=== PATIENT | male | born 1955 | race Two or more races ===

== ENCOUNTER 2020-04-20 14:54 | Emergency (ER) | payer OTHER ==
[~2020-04-20] VITALS: Ht 162.6 cm; Wt 78.9 kg
[~2020-04-20 14:54] MED LIST: PREDNISONE10 MG ORAL; VALACYCLOVIR1000 MG ORAL
--- NOTE | 2020-04-20 15:19 | NUR ---
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 pt unable to move left arm without increased pain. good cms distally.
--- NOTE | 2020-04-20 15:23 | Emergency Room Report ---
History of Present Illness General Chief Complaint: Upper Extremity Injury Source: Patient Present Illness HPI Disclaimer: Please note that this report is being documented using [employer] technology. This can lead to erroneous entry secondary to incorrect interpretation by the dictating instrument. HPI: 64-year-old male presents for left shoulder pain. 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 Noted immediate pain. Unable to move the left side. No prior history of injury or dislocation. He is left- handed. No other injury reported. Denies numbness or tingling. PMH: Reviewed PSH: Reviewed Allergies: Reviewed Social Hx: Reviewed Allergies: Coded Allergies: No Known Allergies (Unverified , 08/28/18) COVID-19 Screening Contact w/high risk pt: No Experienced COVID-19 symptoms?: No COVID-19 Testing Source: work place Nursing Documentation-PMH Past Medical History: No Stated History Review of Systems All Other Systems: negative except mentioned in HPI Physical Exam Vital Signs Date Time Temp Pulse Resp B/P (MAP) Pulse Ox O2 Delivery O2 Flow Rate FiO2 04/20/20 15:09 98.4 85 19 145/86 (105) 99 Room Air General: Awake and alert, no acute distress HEENT: NC/AT. EOMI. Resp: Normal work of breathing Skin: Intact. No abrasions, laceration or rash over the exposed skin MSK: Normal tone and bulk. Palpable deformity and step-off at the left proximal humerus. Sensation of the deltoid intact. No tenderness or deformity in the elbow, forearm, wrist or fingers of the left upper extremity. Unable to actively move the left upper extremity at the shoulder. Neuro: Awake and alert. Mentating appropriately Medical Decision Making Diagnostic Impression: Primary Impression: Dislocation of shoulder, left, closed ER Course 64-year-old [id number] male presents for evaluation of left shoulder injury. Concern for fracture dislocation x-ray was obtained. X-ray concerning for anterior shoulder dislocation without obvious fracture. The patient was given 4 mg intramuscular morphine for pain and scapular massage technique used with successful reduction of the left shoulder. Placed in immobilizer and postreduction x-ray show appropriate alignment again without fracture. Will be discharged with the immobilizer. Instructed not to use the left upper extremity until cleared to return to these activities by PMD or orthopedic surgeon. Instructed to return with new or worsening symptoms. Other X-Ray Diagnostic Results Other X-Ray Diagnostic Results #1: X-Ray ordered: Left shoulder # of Views/Limited Vs Complete: 3 View Indication: Pain EP Interpretation: Yes Interpretation: other - Anterior shoulder dislocation, no fracture Impression: Other - Anterior shoulder dislocation Electronically Signed by: Electronically signed by Dr. Adarsh Rodriguez Other X-Ray Diagnostic Results #2: X-Ray ordered: Left shoulder post reduction # of Views/Limited Vs Complete: 3 View Indication: Other - Post reduction Interpretation: no dislocation, no fractures Impression: Other - Successful reduction left shoulder Electronically Signed by: Electronically signed by Dr. Adarsh Rodriguez Last Vital Signs Date Time Temp Pulse Resp B/P (MAP) Pulse Ox O2 Delivery O2 Flow Rate FiO2 04/20/20 15:09 98.4 85 19 145/86 (105) 99 Room Air Disposition: HOME, SELF-CARE Condition: Improved Scripts Ibuprofen* (MOTRIN*) 600 Mg Tablet 600 MG ORAL Q6H PRN for For Pain, #30 TAB 0 Refills Prov: Adarsh Rodriguez MD 04/20/20 Adarsh Rodriguez MD Apr 20, 2020 15:23
[2020-04-20 15:30] VITALS: BP 145/86
[2020-04-20] MEDS ORDERED: Morphine Sulfate 2mg/ml Inj(IV/IM USE ONLY) IVP ONE (15:30)
--- NOTE | 2020-04-20 16:06 | NUR ---
ED Nurse Note: md attempting to reduce left should witrh counter traction and massage. pt tolerating well.
[2020-04-20] MEDS ORDERED: IBUPROFEN600 M1 ORAL (16:13)
--- NOTE | 2020-04-20 16:14 | NUR ---
ED Nurse Note: pt with successful shoulder reduction. shoulder immobilizer applied to left shoulder. pt tolerates well. good cms distally remains after.
--- NOTE | 2020-04-20 16:23 | NUR ---
ED Nurse Note: post reduction xray done.
[2020-04-20 17:15] VITALS: BP 125/78
--- NOTE | 2020-04-20 17:15 | NUR ---
ED Nurse Note: Pt cleared by health care Provider for discharge. DC instructions/prescription was given and explained to pt and verbalized understanding of teachings. All medical devices such as ID band removed. Pt is AAO x4, ambulatory and left with all personal belongings. pt with shoulder immobilizer in place. pt states understanding of f/u plan.
--- NOTE | 2020-04-21 06:20 | Diagnostic Imaging Report ---
EXAM: XR Left Shoulder Complete, 2 or More Views CLINICAL HISTORY: INJ TECHNIQUE: Two or more views of the left shoulder. COMPARISON: No relevant prior studies available. FINDINGS: Bones/joints: Anterior dislocation of the left glenohumeral joint. No clear fracture. Normal alignment of the left acromioclavicular joint.. Soft tissues: Unremarkable. IMPRESSION: Anterior dislocation of the left glenohumeral joint.
--- NOTE | 2020-04-21 06:20 | Diagnostic Imaging Report ---
EXAM: XR Left Shoulder Complete, 2 or More Views CLINICAL HISTORY: Injury TECHNIQUE: Two or more views of the left shoulder. COMPARISON: 04/20/20 at 1528 hrs. FINDINGS/IMPRESSION: Successful interval reduction of left glenohumeral dislocation.
== END 2020-04-20 17:15 | disposition home or self-care (01) ==
LOC: EMR 15:15
DX: S43.005A Unspecified dislocation of left shoulder joint, initial encounter (principal); X50.0XXA Overexertion from strenuous movement or load, initial encounter; Y92.9 Unspecified place or not applicable; Y99.0 Civilian activity done for income or pay
CPT/HCPCS: 23650; 73030; 96374; J2270; Z7502; 99283

== ENCOUNTER 2020-05-12 10:14 | Emergency (ER) | payer OTHER ==
[~2020-05-12] VITALS: Ht 160 cm; Wt 72.6 kg
[~2020-05-12 10:14] MED LIST changes: +IBUPROFEN600 M1 ORAL
[2020-05-12 10:20] VITALS: BP 149/74
--- NOTE | 2020-05-12 10:20 | NUR ---
ED Nurse Note: Pt walked in from home c/o possible stroke symtoms. Pt has right sided facial droop with headache that started yesterday around 0700. Pt had a stroke 3 months ago. Respirations even and labored on room air. Vitals stable as documented. A+Ox4, speaking in complete sentences, with clear speech. Arm strength equal and strong on both sides.
[2020-05-12 10:37] LABS: BASOPHILS % (AUTO) 1.8 % (0.0-2.0); EOSINOPHILS % (AUTO) 2.2 % (0.0-3.0); HEMATOCRIT 49.2 % (42.0-52.0); HEMOGLOBIN 16.3 G/DL (14.2-18.0); LYMPHOCYTES % (AUTO) 31.5 % (20.0-45.0); MEAN CORPUSCULAR VOLUME 87 FL (80-99); MONOCYTES % (AUTO) 7.4 % (1.0-10.0); NEUTROPHILS % (AUTO) 57.2 % (45.0-75.0); PLATELET COUNT 369 K/UL (150-450); RED BLOOD COUNT 5.68 M/UL (4.70-6.10); RED CELL DISTRIBUTION WIDTH 12.7 % (11.6-14.8); WHITE BLOOD COUNT 7.4 K/UL (4.8-10.8)
[2020-05-12 10:48] LABS: ANION GAP 10 mmol/L (5-15); BLOOD UREA NITROGEN 10 mg/dL (7-18); CALCIUM 8.6 MG/DL (8.5-10.1); CARBON DIOXIDE 26 MMOL/L (21-32); CHLORIDE 105 MMOL/L (98-107); CREATININE 0.8 MG/DL (0.55-1.30); SODIUM 141 MMOL/L (136-145)
[2020-05-12 10:53] LABS: ALANINE AMINOTRANSFERASE 51 U/L (12-78); ALKALINE PHOSPHATASE 84 U/L (46-116); ASPARTATE AMINO TRANSFERASE 24 U/L (15-37); BILIRUBIN,TOTAL 0.4 MG/DL (0.2-1.0)
--- NOTE | 2020-05-12 10:55 | NUR ---
ED Nurse Note: pt in radiology
--- NOTE | 2020-05-12 11:44 | Diagnostic Imaging Report ---
Indications: Right-sided facial droop and headache started yesterday Technique: Spiral acquisitions obtained through the brain. Angled axial and coronal 5 x 5 mm slices were reconstructed. Total dose length product 1125 mGycm. CTDI vol(s) 53 mGy. Dose reduction achieved using automated exposure control Comparison: None. Findings: No acute intracranial hemorrhage or edema, mass effect, nor midline shift. Normal kyle-white differentiation. Normal size ventricles and extra axial CSF spaces.. Visualized orbits and sinuses are unremarkable. The mastoids are clear. The calvarium is intact Impression: Negative The CT scanner at [facility] is accredited by the [employer] and the scans are performed using protocols designed to limit radiation exposure to as low as reasonably achievable to attain images of sufficient resolution adequate for diagnostic evaluation.
[2020-05-12] MEDS ORDERED: PREDNISONE10 MG ORAL (11:59)
[2020-05-12] MEDS ORDERED: VALACYCLOVIR1000 MG ORAL (11:59)
[2020-05-12 12:15] VITALS: BP 138/72
--- NOTE | 2020-05-12 12:15 | NUR ---
ER DISCHARGE NOTE: Patient is cleared to be discharged per ERMD, pt is aox4, on room air, with stable vital signs. pt was given dc and prescription instructions, pt was able to verbalize understanding, pt id band and iv site removed without complications. pt is able to ambulate with steady gait. pt took all belongings.
--- NOTE | 2020-05-12 15:16 | Emergency Room Report ---
History of Present Illness General Chief Complaint: Stroke Symptoms Source: Patient Present Illness HPI Disclaimer: Please note that this report is being documented using [employer] technology. This can lead to erroneous entry secondary to incorrect interpretation by the dictating instrument. HPI: 64-year-old male presents with right facial weakness patient states symptoms started approximately 24 hours ago. He has had this once in the past about 3 months ago. He denies any pain or shortness of breath nausea and vomiting. He states he has a history of diabetes but is not on medication at this time. Arrived ambulatory. 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 Patient History Reviewed Nursing Documentation: PMH: Agreed; PSxH: Agreed Nursing Documentation-PMH Past Medical History: No History, Except For Hx Hypertension: Yes Hx Diabetes: Yes Review of Systems All Other Systems: negative except mentioned in HPI Physical Exam Vital Signs Date Time Temp Pulse Resp B/P (MAP) Pulse Ox O2 Delivery O2 Flow Rate FiO2 05/12/20 10:18 98.8 72 16 167/87 (113) 97 Room Air Sp02 EP Interpretation: reviewed, normal General Appearance: well appearing, no apparent distress Head: normocephalic, atraumatic Eyes: bilateral eye PERRL, bilateral eye EOMI ENT: hearing grossly normal, moist mucus membranes Neck: full range of motion, supple Respiratory: lungs clear, normal breath sounds, no rhonchi, no respiratory distress, no retraction, no wheezing Cardiovascular #1: normal peripheral pulses, regular rate, rhythm, no murmur Gastrointestinal: non tender, soft, non-distended, no guarding Neurologic: alert, oriented x3, cerebellar normal, speech normal, normal gait, no focal defects, other - Right facial droop noted with difficulty closing right eyelid in addition to loss of wrinkling of right forehead Skin: normal color, warm/dry Medical Decision Making Diagnostic Impression: Primary Impression: Mccann's palsy ER Course MDM: Differential includes but not limited to Mccann's palsy, did consider stroke and intracranial hemorrhage as well Clinical course-patient had obvious right-sided facial droop with involvement of the forehead. 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 I did do a CT scan of the brain which showed no acute process. Laboratory studies showed no significant abnormalities. At this time I do suspect a right-sided Mccann's palsy. Patient was discharged with prednisone in addition to antivirals. Will follow-up with PMD. I did recommend taping the eye lid closed at night to prevent eye dryness. Stable for discharge with return precautions. CT/MRI/US Diagnostic Results CT/MRI/US Diagnostic Results : Imaging Test Ordered: CT brain Impression No acute process Last Vital Signs Date Time Temp Pulse Resp B/P (MAP) Pulse Ox O2 Delivery O2 Flow Rate FiO2 05/12/20 10:20 98.4 79 18 149/74 98 Room Air Disposition: HOME, SELF-CARE Condition: Stable Scripts Valacyclovir Hcl (VALACYCLOVIR) 1,000 Mg Tablet 1000 MG ORAL TID, #21 TAB Prov: Tian Campbell M.D. 05/12/20 Prednisone* (PREDNISONE*) 10 Mg Tablet 10 MG ORAL DAILY, #21 TAB 0 Refills 4 po QD X 2, 3 po QD X 2, 2 po QD X 2, 1 po QD X 4 Prov: Tian Campbell M.D. 05/12/20 Patient Instructions: Mccann Palsy Additional Instructions: Patient is instructed to follow-up with her primary care doctor, primary care clinic or [facility] in 1 to 2 days. Patient instructed to return for any worsening symptoms or concerns. Tian Campbell M.D. May 12, 2020 15:16
--- NOTE | 2020-05-14 04:10 | Cardiology Report ---
APPROVED REPORT EKG Measurement Heart [id number] <Conclusion> Normal sinus rhythm Normal ECG
== END 2020-05-12 12:15 | disposition home or self-care (01) ==
LOC: EMR 10:33
DX: G51.0 Bell's palsy (principal); E11.9 Type 2 diabetes mellitus without complications; I10 Essential (primary) hypertension; R51.9 Headache, unspecified
CPT/HCPCS: 36415; 70450; 80053; 84484; 85025; 85610; 85730; 93005; Z7502; 99284

== ENCOUNTER 2020-06-30 13:36 | Inpatient (IN) | payer OTHER ==
[~2020-06-30] VITALS: Ht 172.7 cm; Wt 63.5 kg
[2020-06-30 14:05] VITALS: BP 118/87
[2020-06-30 14:40] LABS: BASOPHILS % (AUTO) 1.6 % (0.0-2.0); EOSINOPHILS % (AUTO) 5.8 % (0.0-3.0); HEMATOCRIT 47.1 % (42.0-52.0); HEMOGLOBIN 15.7 G/DL (14.2-18.0); LYMPHOCYTES % (AUTO) 22.3 % (20.0-45.0); MEAN CORPUSCULAR VOLUME 85 FL (80-99); MONOCYTES % (AUTO) 4.7 % (1.0-10.0); NEUTROPHILS % (AUTO) 65.5 % (45.0-75.0); PLATELET COUNT 421 K/UL (150-450); RED BLOOD COUNT 5.56 M/UL (4.70-6.10); RED CELL DISTRIBUTION WIDTH 13.8 % (11.6-14.8); WHITE BLOOD COUNT 9.3 K/UL (4.8-10.8)
--- NOTE | 2020-06-30 14:52 | Emergency Room Report ---
History of Present Illness General Chief Complaint: Dyspnea/Respdistress Source: Patient Present Illness HPI 64-year-old male presents to ED for evaluation. States he has had a cough and felt short of breath for the last 5 days. O2 sat low in triage. Cough is productive with yellowish phlegm. Denies fevers or chills. Denies chest pain. States he feels short of breath when walking. Unknown Covid contacts. No other aggravating relieving factors. Denies any other associated symptoms Allergies: Coded Allergies: No Known Allergies (Unverified , 08/28/18) COVID-19 Screening Contact w/high risk pt: No Experienced COVID-19 symptoms?: No COVID-19 Testing performed INSTRUCTOR TECHNICAL TRAINING: No COVID-19 Screening: Negative COVID-19 Patient History Past Medical History: DM, HTN Past Surgical History: none Pertinent Family History: none Social History: Denies: smoking, alcohol use, drug use Immunizations: UTD Reviewed Nursing Documentation: PMH: Agreed; PSxH: Agreed Nursing Documentation-PMH Past Medical History: No History, Except For Hx Hypertension: Yes Hx Diabetes: Yes Review of Systems All Other Systems: negative except mentioned in HPI Physical Exam Vital Signs Date Time Temp Pulse Resp B/P (MAP) Pulse Ox O2 Delivery O2 Flow Rate FiO2 06/30/20 13:46 98.2 95 16 118/87 (97) 88 Room Air Sp02 EP Interpretation: reviewed, normal General Appearance: alert, GCS 15, non-toxic, mild distress Head: normocephalic, atraumatic Eyes: bilateral eye normal inspection, bilateral eye PERRL ENT: hearing grossly normal, normal pharynx, no angioedema, normal voice Neck: full range of motion, supple/symm/no masses Respiratory: chest non-tender, lungs clear, normal breath sounds, speaking full sentences Cardiovascular #1: regular rate, rhythm, no edema Cardiovascular #2: 2+ carotid (R), 2+ carotid (L), 2+ radial (R), 2+ radial (L), 2+ dorsalis pedis (R), 2+ dorsalis pedis (L) Gastrointestinal: normal bowel sounds, non tender, soft, non-distended, no guarding, no rebound Rectal: deferred Genitourinary: normal inspection, no CVA tenderness Musculoskeletal: back normal, normal range of motion, gait/station normal, non- tender Neurologic: alert, motor strength/tone normal, oriented x3, sensory intact, responsive, speech normal Psychiatric: judgement/insight normal, memory normal, mood/affect normal, no suicidal/homicidal ideation Reflexes: 3+ bicep (R), 3+ bicep (L), 3+ tricep (R), 3+ tricep (L), 3+ knee (R), 3+ knee (L) Lymphatic: no adenopathy Medical Decision Making Diagnostic Impression: Primary Impression: Dyspnea Qualified Codes: R06.00 - Dyspnea, unspecified Additional Impression: Pneumonia due to COVID-19 virus ER Course Hospital Course 64-year-old male presents with shortness of breath, hypoxic in triage Differential diagnoses include: Pneumonia, CHF exacerbation, pneumothorax, fluid overload Clinical course Patient placed on stretcher. In isolation. I wore full PPE. On cafeteria monitor with hypoxia on room air. After initial history and physical, I ordered labs, IV fluids, EKG, chest x-ray, blood cultures, UA. Patient placed on nasal cannula with O2 saturation improving Labs -leukocytosis noted, hemoglobin/hematocrit stable, electrolytes okay, lactate okay troponins negative EKG - NSR no acute ischemic changes interpreted by me CXR - bilateral patchy opacities rapid covid + inflammatory markers elevated, D-dimer elevated. Given antibiotics. Given dexamethasone. Given Lovenox. O2 sats improved on nasal cannula Case discussed with Dr. Laird and he agreed to the patient to his service for further care and support I feel this is a highly complex case requiring extensive working including EKG/Rhythm strip, Xray/CT/US, Blood/urine lab work, repeat exams while in ED, a nd administration of strong opiates/narcotics for pain control, admission to hospital or close patient follow up. Diagnosis - dyspnea, pneumonia due to COVID Patient admitted to floor in serious condition Laboratory Tests Test 06/30/20 14:25 White Blood Count 9.3 K/UL (4.8-10.8) Red Blood Count 5.56 M/UL (4.70-6.10) Hemoglobin 15.7 G/DL (14.2-18.0) Hematocrit 47.1 % (42.0-52.0) Mean Corpuscular Volume 85 FL (80-99) Mean Corpuscular Hemoglobin 28.3 PG (27.0-31.0) Mean Corpuscular Hemoglobin Concent 33.4 G/DL (32.0-36.0) Red Cell Distribution Width 13.8 % (11.6-14.8) Platelet Count 421 K/UL (150-450) Mean Platelet Volume 6.6 FL (6.5-10.1) Neutrophils (%) (Auto) 65.5 % (45.0-75.0) Lymphocytes (%) (Auto) 22.3 % (20.0-45.0) Monocytes (%) (Auto) 4.7 % (1.0-10.0) Eosinophils (%) (Auto) 5.8 % (0.0-3.0) H Basophils (%) (Auto) 1.6 % (0.0-2.0) Prothrombin Time 11.7 SEC (9.30-11.50) H Prothromb Time International Ratio 1.1 (0.9-1.1) Activated Partial Thromboplast Time 26 SEC (23-33) D-Dimer 5.30 mg/L FEU (0.00-0.49) H Sodium Level 140 MMOL/L (136-145) Potassium Level 3.9 MMOL/L (3.5-5.1) Chloride Level 104 MMOL/L (98-107) Carbon Dioxide Level 28 MMOL/L (21-32) Anion Gap 8 mmol/L (5-15) Blood Urea Nitrogen 10 mg/dL (7-18) Creatinine 0.8 MG/DL (0.55-1.30) Estimat Glomerular Filtration Rate > 60 mL/min (>60) Glucose Level 157 MG/DL (74-106) H Lactic Acid Level 1.30 mmol/L (0.4-2.0) Calcium Level 8.4 MG/DL (8.5-10.1) L Ferritin 935 NG/ML (8-388) H Total Bilirubin 0.4 MG/DL (0.2-1.0) Aspartate Amino Transf (AST/SGOT) 35 U/L (15-37) Alanine Aminotransferase (ALT/SGPT) 46 U/L (12-78) Alkaline Phosphatase 89 U/L (46-116) Lactate Dehydrogenase 295 U/L (81-234) H Troponin I 0.006 ng/mL (0.000-0.056) C-Reactive Protein, Quantitative < 0.4 mg/dL (0.00-0.90) Pro-B-Type Natriuretic Peptide Pending Total Protein 7.7 G/DL (6.4-8.2) Albumin 2.9 G/DL (3.4-5.0) L Globulin 4.8 g/dL Albumin/Globulin Ratio 0.6 (1.0-2.7) L Lipase 370 U/L (73-393) EKG Diagnostic Results Troponin ordered: Yes Rate: normal Rhythm: NSR ST Segments: no acute changes ASA given to the pt in ED: No Rhythm Strip Diag. Results EP Interpretation: yes Rhythm: NSR, no PVC's, no ectopy Chest X-Ray Diagnostic Results Chest X-Ray Diagnostic Results : Chest X-Ray Ordered: Yes # of Views/Limited/Complete: 1 View Indication: Shortness of Breath EP Interpretation: Yes Interpretation: other - bilateral opacities Impression: Other - Covid pneumonia Electronically Signed by: Electronically signed by Ang Chanel MD Last Vital Signs Date Time Temp Pulse Resp B/P (MAP) Pulse Ox O2 Delivery O2 Flow Rate FiO2 06/30/20 14:05 98.2 16 118/87 88 Room Air 06/30/20 14:05 95 Status: improved Disposition: ADMITTED INPATIENT Condition: Serious Referrals: [facility],REFERRING (PCP) Ang Chanel MD Jun 30, 2020 14:52
[2020-06-30 14:55] LABS: INR 1.1 (0.9-1.1)
[2020-06-30 15:00] LABS: ANION GAP 8 mmol/L (5-15); BLOOD UREA NITROGEN 10 mg/dL (7-18); CALCIUM 8.4 MG/DL (8.5-10.1); CARBON DIOXIDE 28 MMOL/L (21-32); CHLORIDE 104 MMOL/L (98-107); CREATININE 0.8 MG/DL (0.55-1.30); POTASSIUM 3.9 MMOL/L (3.5-5.1); SODIUM 140 MMOL/L (136-145)
[2020-06-30 15:02] LABS: ALANINE AMINOTRANSFERASE 46 U/L (12-78); ALBUMIN 2.9 G/DL (3.4-5.0); ALBUMIN/GLOBULIN RATIO 0.6 (1.0-2.7); ALKALINE PHOSPHATASE 89 U/L (46-116); ASPARTATE AMINO TRANSFERASE 35 U/L (15-37); BILIRUBIN,TOTAL 0.4 MG/DL (0.2-1.0)
[2020-06-30 15:13] LABS: FERRITIN 935 NG/ML (8-388); LACTATE DEHYDROGENASE 295 U/L (81-234)
[2020-06-30] MEDS ORDERED: cefTRIAXone 1 GM in NS 55 ML IVPB ONE (16:00)
[2020-06-30] MEDS ORDERED: Azithromycin 500 MG in NS 275 ML IV ONE (16:00)
[2020-06-30] MEDS ORDERED: dexAMETHasone 10mg/ml Inj IV ONE (16:00)
[2020-06-30] MEDS ORDERED: Enoxaparin 100mg Inj SUBQ ONE (16:00)
--- NOTE | 2020-06-30 16:29 | Diagnostic Imaging Report ---
Indication: Shortness of breath Technique: One view of the chest Comparison: none Findings: There are extensive bilateral interstitial and airspace infiltrates. The heart size is normal. The pleural spaces are clear. Impression: Bilateral interstitial and airspace disease, likely bilateral pneumonia. Pulmonary edema also possible
[2020-06-30 18:40] LABS: APPEARANCE,URINE CLEAR; BILIRUBIN, URINE NEGATIVE (NEGATIVE); COLOR,URINE PALE YELLOW; GLUCOSE, URINE (UA) NEGATIVE (NEGATIVE); KETONES,URINE NEGATIVE (NEGATIVE); LEUKOCYTE ESTERASE ,URINE NEGATIVE (NEGATIVE); NITRITE,URINE NEGATIVE (NEGATIVE); PH,URINE 7 (4.5-8.0); PROTEIN,URINE NEGATIVE (NEGATIVE); UROBILINOGEN,URINE NORMAL MG/DL (0.0-1.0)
--- NOTE | 2020-06-30 18:40 | Emergency Room Report ---
History of Present Illness General Chief Complaint: Dyspnea/Respdistress Source: Patient Present Illness Allergies: Coded Allergies: No Known Allergies (Unverified , 08/28/18) COVID-19 Screening Contact w/high risk pt: No Experienced COVID-19 symptoms?: No COVID-19 Testing performed CHIP FRIER: No COVID-19 Screening: Negative COVID-19 Nursing Documentation-[facility] Past Medical History: No History, Except For Hx Hypertension: Yes Hx Diabetes: Yes Physical Exam Vital Signs Date Time Temp Pulse Resp B/P (MAP) Pulse Ox O2 Delivery O2 Flow Rate FiO2 06/30/20 13:46 98.2 95 16 118/87 (97) 88 Room Air Procedures Critical Care Time Critical Care Time i. I feel this is a highly complex case requiring extensive working including EKG/Rhythm strip, Xray/CT/US, Blood/urine lab work, repeat exams while in ED,and administration of strong opiates/narcotics for pain control, admission to hospital or close patient follow up. Total time: 60 min bedside evaluation and treatment excludes procedures (EKG). Reason for critical care: Hypoxia, Covid positive Possible complications: hypotension, hypertension, [place], shock, arrhythmias, metabolic acidosis, end organ damage, respiratory failure. Interventions: Oxygen, labs, EKG, chest x-ray, isolation precautions, antibiotics, Decadron, Lovenox, cardiac monitoring Course: Patient presenting with hypoxia, shortness of breath. Chest x-ray with opacities. Covid positive. D-dimer inflammatory markers elevated. Given Decadron and Lovenox. Given antibiotics. O2 sats improved on nasal cannula. Consultations: nursing staff, EMS, family Performed by: Dr Chanel Tolerated well condition = serious j. because of unstable vital signs this patient had a condition that could potentially threaten life or limb. I feel this is a critical patient who required my full attention while patient was considered critical. Total Critical Care Time excluding procedures was greater than 60 minutes Medical Decision Making Diagnostic Impression: Primary Impression: Dyspnea Additional Impression: Pneumonia due to COVID-19 virus Last Vital Signs Date Time Temp Pulse Resp B/P (MAP) Pulse Ox O2 Delivery O2 Flow Rate FiO2 06/30/20 14:05 98.2 16 118/87 88 Room Air 06/30/20 14:05 95 Disposition: ADMITTED INPATIENT Condition: Serious Referrals: [facility],REFERRING (PCP) Ang Chanel MD Jun 30, 2020 18:40
[2020-06-30 19:30] VITALS: BP 128/86
[2020-06-30 21:30] VITALS: BP 136/88
[2020-06-30] MEDS ORDERED: Milk of Magnesia 30ml Ud ORAL PRN (22:45)
[2020-06-30 23:55] VITALS: BP 133/91
[2020-07-01] VITALS (8 sets, daily range): BP systolic 108–137; BP diastolic 65–94
[2020-07-01] MEDS: Docusate 100mg cap ORAL SCH ×3 (00:11→21:11)
[2020-07-01 05:21] LABS: ALANINE AMINOTRANSFERASE 44 U/L (12-78); ALBUMIN 2.8 G/DL (3.4-5.0); ALBUMIN/GLOBULIN RATIO 0.6 (1.0-2.7); ALKALINE PHOSPHATASE 80 U/L (46-116); ANION GAP 7 mmol/L (5-15); ASPARTATE AMINO TRANSFERASE 31 U/L (15-37); BILIRUBIN,TOTAL 0.5 MG/DL (0.2-1.0); BLOOD UREA NITROGEN 11 mg/dL (7-18); CALCIUM 8.3 MG/DL (8.5-10.1); CARBON DIOXIDE 28 MMOL/L (21-32); CHLORIDE 104 MMOL/L (98-107); CREATININE 0.6 MG/DL (0.55-1.30); SODIUM 138 MMOL/L (136-145)
[2020-07-01] MEDS: Enoxaparin 30mg Inj SUBQ SCH ×3 (09:18→18:22)
--- NOTE | 2020-07-01 12:25 | History & Physical ---
History and Physical History & Physicial HP dictated # [id number] Luis Laird MD Jul 01, 2020 12:25
--- NOTE | 2020-07-01 13:45 | Consultation ---
DATE OF CONSULTATION: 07/01/2020 INFECTIOUS DISEASE CONSULTATION CONSULTING PHYSICIAN: Shelton Laird MD. PRIMARY ATTENDING PHYSICIAN: Luis Laird MD. REASON FOR CONSULT: COVID-19 pneumonia. HISTORY OF PRESENT ILLNESS: This is a 64-year-old male, admitted yesterday from home complaining of cough, shortness of breath for five-day before admission. Cough is productive of yellowish sputum. Denies fever or chills. Denies chest pain. PAST MEDICAL HISTORY: Diabetes mellitus, hypertension. ALLERGIES: No known drug allergies. MEDICATIONS: Dexamethasone, enoxaparin, magnesium hydroxide, Colace, famotidine, get a dose of ceftriaxone and Zithromax in the ER. SOCIAL HISTORY: . No history of alcohol, drug abuse or smoking. REVIEW OF SYSTEMS: As history of present illness. PHYSICAL EXAMINATION: VITAL SIGNS: Temperature 97.5, pulse 68, blood pressure 126/77. GENERAL APPEARANCE: No acute distress. Seems to have normal weight. HEAD AND NECK: Getting oxygen by nasal cannula. HEART: Normal rate. LUNGS: Clear. O2 saturation on room air is 93%. ABDOMEN: Soft, nontender. EXTREMITIES: No edema. LABORATORY AND DIAGNOSTIC DATA: Sodium 138, potassium 4, chloride 104, bicarb 28, BUN 11, creatinine 0.6, glucose is 145, albumin is 2.8. WBC of 9.3, hemoglobin 15.7, hematocrit 47.1, and platelet is 421. COVID-19 test positive. Chest x-ray showed bilateral interstitial and airspace disease, likely bilateral pneumonia or pulmonary edema. IMPRESSION: 1. COVID-19 pneumonia. 2. Decreased albumin. 3. Hypoxemia. 4. Diabetes mellitus. 5. Hypertension. RECOMMENDATION: Continue dexamethasone. We will monitor oxygenation closely. If the patient become more hypoxemic, we will consider remdesivir. At the end of my exam, I thank Dr. Luis Laird for involving me in the care of this patient. Shelton Laird M.D. DR: NANCY JOB#: [id number] CC: MICHAEL
--- NOTE | 2020-07-01 15:00 | History and Physical Report ---
DATE OF ADMISSION: 06/30/2020 CHIEF COMPLAINT: Some abdominal pain, reported shortness of breath and cough, although the patient denies. HISTORY OF PRESENT ILLNESS: This is a 64-year-old male who lives alone. He came to the emergency room mostly because of some abdominal pain. No diarrhea, vomiting. ER reported the patient had some cough and shortness of breath. He denies. He was found to have COVID positive. He did, however, have a chest x-ray showing bilateral interstitial and airspace disease, likely bilateral pneumonia. PAST MEDICAL HISTORY: The patient has a reported history of diabetes, but he is not taking any medication. ALLERGIES: No known drug allergies. SOCIAL HISTORY: The patient works in construction,. No history of smoking or alcohol abuse. He is from . REVIEW OF SYSTEMS: As above. PHYSICAL EXAMINATION: GENERAL: The patient is a 64-year-old male, in no acute distress. VITAL SIGNS: Blood pressure is 126/77, pulse 68, respirations 20, and temperature 97.5. HEENT: [place] conjunctivae. Anicteric sclerae. NECK: Supple. LUNGS: Clear to auscultation. HEART: S1, S2 without murmurs or rubs. ABDOMEN: Soft, nontender. EXTREMITIES: No cyanosis or edema. LABORATORY FINDINGS: The CBC shows a WBC of 9300, hematocrit is 47.1, hemoglobin is 15.7, platelets 421,000. Chemistry panel shows serum sodium of 138, potassium 4, chloride 104, carbon dioxide 28, glucose is 145, calcium is 8.3. UA is unremarkable. ASSESSMENT: This is a 64-year-old male who was admitted for abdominal pain, reported history of shortness of breath, but when I asked him he said he is not short of breath except when he works. He does have bilateral infiltrates on chest x-ray indicating pneumonia as well as a positive COVID-19 test, so COVID pneumonia is the diagnosis at this time. The patient has reported history of diabetes. PLAN: The patient will be on steroids. Blood sugar will be checked and the patient will be on sliding scale insulin. I will start the patient also on antibiotics. ID consultation will be obtained. The patient will be on O2 as needed. Labs will be followed and further adjustment will be made in the patient's regimen. Luis Laird M.D. DR: COLLEEN JOB#: [id number] CC: MICHAEL
[2020-07-01] MEDS: cefTRIAXone 1 GM in D5W 55 ML IVPB SCH (15:39)
[2020-07-02] VITALS: BP 134/66
[2020-07-02 04:00] VITALS: BP 119/76
[2020-07-02 08:00] VITALS: BP 118/77
[2020-07-02] MEDS: Enoxaparin 30mg Inj SUBQ SCH ×2 (09:04→17:26)
[2020-07-02] MEDS: Docusate 100mg cap ORAL SCH ×2 (09:04→20:22)
--- NOTE | 2020-07-02 11:03 | General Progress Note ---
Subjective Allergies: Coded Allergies: No Known Allergies (Unverified , 08/28/18) Subjective better Objective Last 24 Hour Vital Signs Date Time Temp Pulse Resp B/P (MAP) Pulse Ox O2 Delivery O2 Flow Rate FiO2 07/02/20 09:00 Nasal Cannula 2.0 07/02/20 08:00 97.3 75 20 118/77 (91) 95 07/02/20 04:00 98.4 58 20 119/76 (90) 97 07/02/20 00:00 98.2 65 20 134/66 (88) 96 07/01/20 21:00 Nasal Cannula 2.0 07/01/20 20:00 97.5 70 20 108/65 (79) 93 07/01/20 16:00 97.7 80 20 132/78 (96) 95 07/01/20 12:00 96.4 75 20 126/76 (93) 95 Intake and Output 07/01/20 07/02/20 19:00 07:00 Intake Total 480 ml Output Total 1150 ml Balance 480 ml -1150 ml Intake Oral 480 ml Output Urine Total 1150 ml # Voids 3 3 Height (Feet): 5 Height (Inches): 8.00 Weight (Pounds): 140 Cardiovascular: normal rate Respiratory/Chest: lungs clear Assessment/Plan Problem List: (1) Pneumonia due to COVID-19 virus ICD Codes: U07.1 - COVID-19; J12.89 - Other viral pneumonia SNOMED: 377376631427405313 (2) DM (diabetes mellitus) ICD Codes: E11.9 - Type 2 diabetes mellitus without complications SNOMED: 61339105 (3) Acute hypoxemic respiratory failure due to COVID-19 ICD Codes: U07.1 - COVID-19; J96.01 - Acute respiratory failure with hypoxia Assessment/Plan: IV steroids abxs Remdesivir ? Discussed with RN Will discuss with Luis Ngo MD Jul 02, 2020 11:03
[2020-07-02 12:00] VITALS: BP 124/84
--- NOTE | 2020-07-02 12:09 | Infectious Diseases Prog Note ---
Assessment/Plan Assessment/Plan antibiotics : ceftriaxone A 1. COVID 19 pneumonia on 2 liters O2, 95 % saturation 2. diabetes mellitus 3. hypertension P 1. continue dexamethasone day 3 2. continue isolation Subjective Constitutional: Denies: fever, chills Respiratory: Reports: shortness of breath - less; Denies: dry cough Gastrointestinal/Abdominal: Denies: nausea, vomiting, diarrhea Musculoskeletal: Denies: pain Allergies: Coded Allergies: No Known Allergies (Unverified , 08/28/18) Objective Last 24 Hour Vital Signs Date Time Temp Pulse Resp B/P (MAP) Pulse Ox O2 Delivery O2 Flow Rate FiO2 07/02/20 09:00 Nasal Cannula 2.0 07/02/20 08:00 97.3 75 20 118/77 (91) 95 07/02/20 04:00 98.4 58 20 119/76 (90) 97 07/02/20 00:00 98.2 65 20 134/66 (88) 96 07/01/20 21:00 Nasal Cannula 2.0 07/01/20 20:00 97.5 70 20 108/65 (79) 93 07/01/20 16:00 97.7 80 20 132/78 (96) 95 Height (Feet): 5 Height (Inches): 8.00 Weight (Pounds): 140 Microbiology Date/Time Source Procedure Growth Status 06/30/20 14:25 Nasopharynx SARS-CoV-2 RdRp Gene Assay - Final Complete Current Medications Medications (Trade) Dose Ordered Sig/Kristi Route PRN Reason Start Time Stop Time Status Last Admin Dose Admin Acetaminophen (Tylenol) 650 mg Q4H PRN ORAL Mild Pain (Pain Scale 1-3) 06/30/20 22:45 07/30/20 22:44 Ceftriaxone Sodium 1 gm/ Dextrose 55 ml @ 110 mls/hr Q24H IVPB 07/01/20 16:00 07/08/20 15:59 07/01/20 15:39 Dexamethasone Sodium Phosphate (Decadron 4mg/ml vial) 6 mg DAILY IVP 07/01/20 09:00 07/09/20 12:00 07/02/20 09:03 Dextrose (Dextrose 50%) 25 ml Q30M PRN IV Hypoglycemia 06/30/20 22:45 09/28/20 22:44 Dextrose (Dextrose 50%) 50 ml Q30M PRN IV Hypoglycemia 06/30/20 22:45 09/28/20 22:44 Docusate Sodium (Colace) 100 mg EVERY 12 HOURS ORAL 06/30/20 22:45 07/30/20 22:44 07/02/20 09:04 Enoxaparin Sodium (Lovenox) 30 mg BID SUBQ 07/01/20 09:00 09/29/20 08:59 07/02/20 09:04 Famotidine (Pepcid) 20 mg BID ORAL 06/30/20 22:45 09/28/20 22:44 07/02/20 09:03 Magnesium Hydroxide (Mom) 30 ml HSPRN PRN ORAL Constipation 06/30/20 22:45 07/30/20 22:44 Jurgen Hutchison MD Jul 02, 2020 12:09
[2020-07-02 16:00] VITALS: BP 117/70
[2020-07-02] MEDS: cefTRIAXone 1 GM in D5W 55 ML IVPB SCH (16:18)
[2020-07-02 23:56] VITALS: BP 129/75
[2020-07-03 04:34] VITALS: BP 127/80
[2020-07-03 08:00] VITALS: BP 102/65
[2020-07-03] MEDS: Docusate 100mg cap ORAL SCH ×2 (08:54→21:00)
[2020-07-03] MEDS: Enoxaparin 30mg Inj SUBQ SCH ×2 (08:54→17:59)
[2020-07-03 12:00] VITALS: BP 127/81
[2020-07-03 16:00] VITALS: BP 125/78
[2020-07-03] MEDS: cefTRIAXone 1 GM in D5W 55 ML IVPB SCH (16:24)
--- NOTE | 2020-07-03 17:11 | Infectious Diseases Prog Note ---
Assessment/Plan Assessment/Plan A 1. COVID 19 pneumonia 2. diabetes mellitus 3. hypertension P 1. continue dexamethasone day 4 2. continue isolation 3. Check pulse oximeter on room air Subjective ROS Limited/Unobtainable: Yes Constitutional: Reports: no symptoms, other - feels better Respiratory: Reports: no symptoms Allergies: Coded Allergies: No Known Allergies (Unverified , 08/28/18) Objective Last 24 Hour Vital Signs Date Time Temp Pulse Resp B/P (MAP) Pulse Ox O2 Delivery O2 Flow Rate FiO2 07/03/20 16:00 97.0 65 18 125/78 (94) 97 07/03/20 12:00 97.7 65 18 127/81 (96) 97 07/03/20 09:00 Nasal Cannula 2.0 07/03/20 08:00 97.2 67 18 102/65 (77) 94 07/03/20 04:34 97.7 56 20 127/80 (96) 96 07/02/20 23:56 97.3 60 20 129/75 (93) 95 07/02/20 21:00 Nasal Cannula 2.0 Height (Feet): 5 Height (Inches): 8.00 Weight (Pounds): 140 HEENT: mucous membranes moist Respiratory/Chest: lungs clear, other - oxygen by nasal cannula Cardiovascular: normal rate Abdomen: soft, non tender Extremities: no edema Neurologic/Psychiatric: alert, responsive Current Medications Medications (Trade) Dose Ordered Sig/Kristi Route PRN Reason Start Time Stop Time Status Last Admin Dose Admin Acetaminophen (Tylenol) 650 mg Q4H PRN ORAL Mild Pain (Pain Scale 1-3) 06/30/20 22:45 07/30/20 22:44 Ceftriaxone Sodium 1 gm/ Dextrose 55 ml @ 110 mls/hr Q24H IVPB 07/01/20 16:00 07/08/20 15:59 07/03/20 16:24 Dexamethasone Sodium Phosphate (Decadron 4mg/ml vial) 6 mg DAILY IVP 07/01/20 09:00 07/09/20 12:00 07/03/20 08:53 Dextrose (Dextrose 50%) 25 ml Q30M PRN IV Hypoglycemia 06/30/20 22:45 09/28/20 22:44 Dextrose (Dextrose 50%) 50 ml Q30M PRN IV Hypoglycemia 06/30/20 22:45 09/28/20 22:44 Docusate Sodium (Colace) 100 mg EVERY 12 HOURS ORAL 06/30/20 22:45 07/30/20 22:44 07/03/20 08:54 Enoxaparin Sodium (Lovenox) 30 mg BID SUBQ 07/01/20 09:00 09/29/20 08:59 07/03/20 08:54 Famotidine (Pepcid) 20 mg BID ORAL 06/30/20 22:45 09/28/20 22:44 07/03/20 08:54 Magnesium Hydroxide (Mom) 30 ml HSPRN PRN ORAL Constipation 06/30/20 22:45 07/30/20 22:44 Shelton Laird MD Jul 03, 2020 17:11
--- NOTE | 2020-07-03 18:00 | General Progress Note ---
Subjective Allergies: Coded Allergies: No Known Allergies (Unverified , 08/28/18) Subjective all noted Objective Last 24 Hour Vital Signs Date Time Temp Pulse Resp B/P (MAP) Pulse Ox O2 Delivery O2 Flow Rate FiO2 07/03/20 16:00 97.0 65 18 125/78 (94) 97 07/03/20 12:00 97.7 65 18 127/81 (96) 97 07/03/20 09:00 Nasal Cannula 2.0 07/03/20 08:00 97.2 67 18 102/65 (77) 94 07/03/20 04:34 97.7 56 20 127/80 (96) 96 07/02/20 23:56 97.3 60 20 129/75 (93) 95 07/02/20 21:00 Nasal Cannula 2.0 Intake and Output 07/02/20 07/03/20 19:00 07:00 Intake Total 500 ml Balance 500 ml Intake Oral 500 ml # Voids 3 3 Height (Feet): 5 Height (Inches): 8.00 Weight (Pounds): 140 Assessment/Plan Problem List: (1) Pneumonia due to COVID-19 virus ICD Codes: U07.1 - COVID-19; J12.89 - Other viral pneumonia SNOMED: 805938209617777882 (2) DM (diabetes mellitus) ICD Codes: E11.9 - Type 2 diabetes mellitus without complications SNOMED: 91414936 (3) Acute hypoxemic respiratory failure due to COVID-19 ICD Codes: U07.1 - COVID-19; J96.01 - Acute respiratory failure with hypoxia Assessment/Plan: Luis Rodriguez MD Jul 03, 2020 18:00
[2020-07-03 20:00] VITALS: BP 125/80
--- NOTE | 2020-07-04 13:07 | Discharge Summary ---
Discharge Summary Discharge Summary _ DATE OF ADMISSION: 06/30/2020 DATE OF DISCHARGE: 07/03/2020 DISCHARGED BY: Dr. Luis Laird REASON FOR ADMISSION: 64 years old male with past medical history of diabetes mellitus, hypertension, presented to emergency department for evaluation due to shortness of breath and cough for the last 5 days. In triage patient was hypoxic. Cough reported as productive with a yellowish color of phlegm. He reported shortness of breath while walking. He denied fever and chills. He denied chest pain. Rapid COVID-19 in ED was positive. Chest x-ray demonstrated bilateral interstitial and airspace disease, likely bilateral pneumonia. Laboratory work-up revealed no leukocytosis ,stable hemoglobin ,hematocrit and platelet count. Troponin negative. Pro BNP 43. EKG revealed sinus rhythm , no acute ischemic changes. Lactic acid 1.3. Stable electrolytes and renal parameters. Ferritin 935, LDH 295, CRP less than 0.4 and D-dimer 5.3. Urinalysis was unremarkable. Patient received steroids , Lovenox , empiric antibiotic , placed on supplemental oxygen and admitted to isolation room for further management. CONSULTANTS: ID specialist Dr. Shelton Laird HOSPITAL COURSE: Patient admitted to medical surgical floor and was kept in isolation. Patient was continued on steroids and antibiotic. ID specialist followed. Blood sugar was managed with sliding scale of insulin. Supplemental oxygen provided and titrated to keep pulse oximetry above 92%. Anticoagulation with Lovenox continued. GI prophylaxis provided. Patient remained afebrile. Patient initially was on nasal cannula , and then prior to discharge was able to be weaned to a room air. Pulse oximetry was stable prior to discharge on a room air. . Patient clinically stabilized and was ready for discharge home . Continue self-isolation as advised by ID specialist.. FINAL DIAGNOSES: COVID-19 pneumonia Acute hypoxemic respiratory failure due to COVID-19 Diabetes mellitus Hypertension DISCHARGE MEDICATIONS: See Medication Reconciliation list. DISCHARGE INSTRUCTIONS: Patient was discharged home. Continue self-isolation for total of 10 days. I have been assigned to dictate discharge summary for this account. I was not involved in the patient's management. Michelle Lancaster NP Jul 04, 2020 13:07
== END 2020-07-03 23:00 | disposition home or self-care (01) | DRG 137 ==
LOC: EMR 14:21 → 4E 16:09 → EDBEDREQ 07-01 05:12
DX: U07.1 COVID-19 (principal); J96.01 Acute respiratory failure with hypoxia; J12.89 Other viral pneumonia; E11.9 Type 2 diabetes mellitus without complications; I10 Essential (primary) hypertension
CPT/HCPCS: 36415; 71045; 80053; 81003; 82728; 83605; 83615; 83690; 83880; 84484; 85025; 85379; 85610; 85730; 86140; 87040; 93005; 96365; 96367; 96375; 99285; U0002